=== PATIENT | female | born 1995 | race Caucasian/White ===

== ENCOUNTER → 2018-04-22 | Outpatient (REF) | payer OTHER ==
[2018-04-22 19:58] LABS: BACTERIA, URINE AUTO NEGATIVE (NEGATIVE); MUCUS, URINE SMALL (NEGATIVE); RBC, URINE AUTO 1 /HPF (0-3); SQUAMOUS EPITHELIAL CELL UR AU 1 /HPF (0-6); WBC, URINE AUTO 33 /HPF (0-3)
== END ==
LOC: M LAB REF 19:20
DX: R10.30 Lower abdominal pain, unspecified (principal)
CPT/HCPCS: 87186

== ENCOUNTER → 2018-04-22 | Outpatient (CLI) | payer OTHER | LOC: M WUC 18:05 | DX: R10.30 Lower abdominal pain, unspecified (principal); M54.5 Low back pain | CPT/HCPCS: 81015 ==

== ENCOUNTER → 2018-04-23 | Outpatient (CLI) | payer OTHER | LOC: M RAD 10:07 | DX: R10.30 Lower abdominal pain, unspecified (principal); M54.5 Low back pain | CPT/HCPCS: 76775 ==

== ENCOUNTER 2024-05-28 17:03 | Emergency (ER) | payer OTHER ==
[~2024-05-28] VITALS: Ht 165.1 cm; Wt 78.1 kg
[2024-05-28] MEDS ORDERED: LORY1TAB2 PO (17:13)
[2024-05-28] MEDS ORDERED: TRAM50TA2 PO (18:50)
[2024-05-28 19:00] VITALS: BP 131/78; TEMP 98.3; O2SAT 96
== END 2024-05-28 19:01 | disposition home or self-care (01) ==
LOC: M ED 17:03
DX: S52.122A Displaced fracture of head of left radius, initial encounter for closed fracture (principal); V80.010A Animal-rider injured by fall from or being thrown from horse in noncollision accident, initial encounter; Y92.830 Public park as the place of occurrence of the external cause; Y93.89 Activity, other specified; Y99.9 Unspecified external cause status; Z79.899 Other long term (current) drug therapy

== ENCOUNTER → 2024-05-28 | Outpatient (CLI) | payer OTHER ==
[~2024-05-28] MED LIST: LORY1TAB2 PO; TRAM50TA2 PO
== END ==
LOC: M RAD 14:20
PROVIDERS: ATTEND Physician Assistant
DX: S50.01XA Contusion of right elbow, initial encounter (principal); V80.010A Animal-rider injured by fall from or being thrown from horse in noncollision accident, initial encounter; Y92.9 Unspecified place or not applicable; Y99.8 Other external cause status; Y93.52 Activity, horseback riding; S52.121A Displaced fracture of head of right radius, initial encounter for closed fracture; M25.421 Effusion, right elbow

== ENCOUNTER → 2024-06-09 | Outpatient (CLI) | payer OTHER | LOC: M SOG 07:28 | PROVIDERS: ATTEND Physician Assistant | DX: M25.521 Pain in right elbow (principal) ==

== ENCOUNTER → 2024-06-22 | Outpatient (CLI) | payer OTHER | LOC: M SOG 07:27 | PROVIDERS: ATTEND Physician Assistant | DX: M25.521 Pain in right elbow (principal); S52.131D Displaced fracture of neck of right radius, subsequent encounter for closed fracture with routine healing ==

== ENCOUNTER → 2024-07-26 | Outpatient (CLI) | payer OTHER | LOC: M SOG 07-25 15:35 | PROVIDERS: ATTEND Physician Assistant | DX: S52.121D Displaced fracture of head of right radius, subsequent encounter for closed fracture with routine healing (principal); Y93.9 Activity, unspecified; Y92.9 Unspecified place or not applicable ==